=== PATIENT | female | born 1985 | race Two or more races ===

== ENCOUNTER 2020-05-19 11:00 | Day surgery (SDC) | payer OTHER | END 2020-05-19 21:30 | disposition home or self-care (01) | LOC: CIR.AMB 11:00 | PROVIDERS: ATTEND Obstetrics & Gynecology | DX: O02.1 Missed abortion (principal); Z20.822 Contact with and (suspected) exposure to COVID-19 ==

== ENCOUNTER 2021-01-19 19:20 | Emergency (ER) | payer OTHER ==
[~2021-01-19] VITALS: Ht 154.9 cm; Wt 61.2 kg
== END 2021-01-19 23:02 | disposition home or self-care (01) ==
LOC: ER 19:20
DX: O26.851 Spotting complicating pregnancy, first trimester (principal); O34.11 Maternal care for benign tumor of corpus uteri, first trimester; D25.9 Leiomyoma of uterus, unspecified; Z3A.01 Less than 8 weeks gestation of pregnancy

== ENCOUNTER → 2021-01-26 10:28 | Outpatient (CLI) | payer OTHER | END | disposition home or self-care (01) | LOC: LAB 10:28 | PROVIDERS: ATTEND Obstetrics & Gynecology | DX: O09.71 Supervision of high risk pregnancy due to social problems, first trimester (principal) ==

== ENCOUNTER 2021-03-14 15:46 | Outpatient (CLI) | payer OTHER | END 2021-03-14 15:59 | disposition home or self-care (01) | LOC: LAB 15:46 | PROVIDERS: ATTEND Obstetrics & Gynecology | DX: O09.72 Supervision of high risk pregnancy due to social problems, second trimester (principal) ==

== ENCOUNTER 2021-04-01 22:32 | Emergency (ER) | payer OTHER ==
[~2021-04-01] VITALS: Ht 154.9 cm; Wt 66.7 kg
[2021-04-01] MEDS ORDERED: PRENA1 TRUE CO1 EACH (22:51)
[2021-04-02] MEDS ORDERED: ACETAMINOPHEN650 M2 PO (03:36)
== END 2021-04-02 03:49 | disposition home or self-care (01) ==
LOC: ER 22:32
DX: R10.84 Generalized abdominal pain (principal); O26.92 Pregnancy related conditions, unspecified, second trimester; Z3A.17 17 weeks gestation of pregnancy

== ENCOUNTER 2021-05-11 15:25 | Outpatient (CLI) | payer OTHER ==
[~2021-05-11 15:25] MED LIST: ACETAMINOPHEN650 M2 PO; PRENA1 TRUE CO1 EACH
== END 2021-05-11 15:33 | disposition home or self-care (01) ==
LOC: LAB 15:25
PROVIDERS: ATTEND Obstetrics & Gynecology
DX: Z34.82 Encounter for supervision of other normal pregnancy, second trimester (principal)

== ENCOUNTER 2021-06-05 08:21 | Outpatient (CLI) | payer OTHER | END 2021-06-05 08:22 | disposition home or self-care (01) | LOC: LAB 08:21 | PROVIDERS: ATTEND Obstetrics & Gynecology | DX: Z34.81 Encounter for supervision of other normal pregnancy, first trimester (principal) ==

== ENCOUNTER 2021-06-29 15:33 | Outpatient (CLI) | payer OTHER | END 2021-06-29 16:55 | disposition home or self-care (01) | LOC: NST 15:33 | PROVIDERS: ATTEND Obstetrics & Gynecology Maternal & Fetal Medicine | DX: Z34.83 Encounter for supervision of other normal pregnancy, third trimester (principal) ==

== ENCOUNTER 2021-07-17 16:56 | Outpatient (CLI) | payer OTHER | END 2021-07-17 17:06 | disposition home or self-care (01) | LOC: LAB 16:56 | PROVIDERS: ATTEND Obstetrics & Gynecology Maternal & Fetal Medicine | DX: D50.9 Iron deficiency anemia, unspecified (principal); O09.73 Supervision of high risk pregnancy due to social problems, third trimester ==

== ENCOUNTER → 2021-08-15 09:01 | Outpatient (CLI) | payer OTHER ==
[~2021-08-15 09:01] MED LIST changes: +KETO10TA2 PO; +OXYC1TAB9 PO; +PROGESTERONE100 M1
== END | disposition home or self-care (01) ==
LOC: LAB 09:01
PROVIDERS: ATTEND Obstetrics & Gynecology
DX: Z34.83 Encounter for supervision of other normal pregnancy, third trimester (principal)

== ENCOUNTER 2021-08-15 09:32 | Inpatient (IN) | payer OTHER ==
[~2021-08-15] VITALS: Ht 157.5 cm; Wt 2.7 kg
[~2021-08-15 09:32] MED LIST changes: -KETO10TA2 PO; -OXYC1TAB9 PO; -PROGESTERONE100 M1
[2021-08-16] MEDS ORDERED: PROGESTERONE100 M1 (13:47)
[2021-08-19] MEDS ORDERED: KETO10TA2 PO (09:10)
[2021-08-19] MEDS ORDERED: OXYC1TAB9 PO (09:10)
== END 2021-08-19 15:57 | disposition home or self-care (01) | DRG 786 ==
LOC: NST 09:32 → LDR 11:05 → SURG-SUITE 11:05 → LDR 11:06 → O/R 08-16 08:50 → OB/GYN 08-16 11:13 → SURG-SUITE 08-16 13:37
PROVIDERS: ADMIT Obstetrics & Gynecology; ATTEND Obstetrics & Gynecology
PROC: 4A1HXCZ Monitoring of Products of Conception, Cardiac Rate, External Approach (ICD-10-PCS; 2021-08-15)
PROC: 0UB90ZZ Excision of Uterus, Open Approach (ICD-10-PCS; 2021-08-16)
PROC: 10D00Z1 Extraction of Products of Conception, Low, Open Approach (ICD-10-PCS; principal; 2021-08-16 08:30)
DX: O34.211 Maternal care for low transverse scar from previous cesarean delivery (principal); O60.14X0 Preterm labor third trimester with preterm delivery third trimester, not applicable or unspecified; O34.13 Maternal care for benign tumor of corpus uteri, third trimester; D25.2 Subserosal leiomyoma of uterus; Z3A.35 35 weeks gestation of pregnancy; Z37.0 Single live birth; Z20.822 Contact with and (suspected) exposure to COVID-19

== ENCOUNTER 2021-12-13 00:14 | Emergency (ER) | payer OTHER ==
[~2021-12-13] VITALS: Ht 154.9 cm; Wt 65.8 kg
[~2021-12-13 00:14] MED LIST changes: +KETO10TA2 PO; +OXYC1TAB9 PO; +PROGESTERONE100 M1
[2021-12-13] MEDS ORDERED: KETO10TA2 PO (06:08)
== END 2021-12-13 06:14 ==
LOC: ER 00:14
DX: R10.2 Pelvic and perineal pain (principal); D25.9 Leiomyoma of uterus, unspecified

== ENCOUNTER 2023-06-19 10:02 | Inpatient (IN) | payer OTHER ==
[~2023-06-19] VITALS: Ht 154.9 cm; Wt 80.3 kg
[2023-06-19] MEDS ORDERED: CEFAZOLIN SODIUM 1,000 MG VIAL IV SCH (10:15)
[2023-06-19] MEDS ORDERED: CITRIC ACID/SODIUM CITRATE 30 ML BLIST.PACK PO SCH (10:15)
[2023-06-19] MEDS ORDERED: RINGERS SOLUTION,LACTATED 1,000 ML IV SCH ×2 (10:15→15:45)
[2023-06-19] MEDS ORDERED: PRENATAL TABLE1 EAC4 PO (10:24)
[2023-06-19 10:43] LABS: HEMATOCRIT 31.7 % (36.0-45.00); PLATELET COUNT 209 K/uL (150-450); RED BLOOD COUNT 3.96 M/uL (4.00-6.00); RED CELL DISTRIBUTION WIDTH 15.8 % (11.5-14.5)
[2023-06-19 10:48] LABS: HEMOGLOBIN 10.5 g/dL (12.0-15.00); MEAN CORPUSCULAR HEMOGLOBIN 26.5 pg (27.00-32.0)
[2023-06-19 11:27] LABS: ALBUMIN 2.5 gm/dL (3.4-5.0); BILIRUBIN TOTAL 0.51 mg/dL (0.3-1.2); CALCIUM 8.6 mg/dL (8.5-10.1); CREATININE SERUM 0.42 mg/dL (0.55-1.02); GFR 171.69; GLOBULINA 3.3 G/DL (2.4-3.5); POTASSIUM 4.38 mEq/L (3.5-5.1); TOTAL PROTEIN 5.8 gm/dL (6.4-8.2)
[2023-06-19 11:41] LABS: INR 0.94; PARTIAL THROMBOPLASTIN TIME 28.5 SECONDS (22.0-34.0); PROTHROMBIN TIME 9.9 SECONDS (9.0-11.5)
[2023-06-19] MEDS ORDERED: ERYTHROMYCIN BASE 3.5 GM OINT...G. OP ONE (14:12)
[2023-06-19] MEDS ORDERED: OXYTOCIN 10 UNITS/ML VIAL ONE (14:12)
[2023-06-19] MEDS ORDERED: MORPHINE SULFATE 4 MG/ML CARTRIDGE IV PRN (15:45)
[2023-06-19] MEDS ORDERED: OXYTOCIN 1,000 ML IV ONE (16:00)
[2023-06-19] MEDS ORDERED: ERYTHROMYCIN BASE 1 GM TUBE OP ONE (16:30)
[2023-06-19] MEDS ORDERED: OXYTOCIN 10 UNIT/ML (10ML) IV ONE (16:30)
[2023-06-19] MEDS ORDERED: GABAPENTIN 300 MG CAPSULE PO SCH (17:00)
[2023-06-19] MEDS ORDERED: SIMETHICONE 125 MG CAPSULE PO SCH (17:00)
[2023-06-19] MEDS ORDERED: KETOROLAC TROMETHAMINE 30 MG VIAL ONE (17:58)
[2023-06-19] MEDS ORDERED: KETOROLAC TROMETHAMINE 30 MG VIAL IV SCH (18:00)
[2023-06-20] MEDS ORDERED: ACETAMINOPHEN 500 MG GEL..CAP PO SCH (06:00)
[2023-06-20 07:11] LABS: HEMATOCRIT 27.2 % (36.0-45.00); HEMOGLOBIN 9.2 g/dL (12.0-15.00); MEAN CORPUSCULAR HEMOGLOBIN 27.4 pg (27.00-32.0); MEAN CORPUSCULAR HGB CONC 33.8 g/dl (32.0-36.0); PLATELET COUNT 169 K/uL (150-450); RED BLOOD COUNT 3.36 M/uL (4.00-6.00); RED CELL DISTRIBUTION WIDTH 15.4 % (11.5-14.5)
[2023-06-20] MEDS ORDERED: OxyCODONE HCL 5 MG TABLET (ROXICODONE) PO PRN (08:00)
[2023-06-20] MEDS ORDERED: KETOROLAC TROMETHAMINE 10 MG TABLET PO SCH (08:00)
[2023-06-20] MEDS ORDERED: IRON FUM,PS/FOLIC/BCOMP,C NO.9 1 CAP CAPSULE PO SCH (09:00)
[2023-06-20] MEDS ORDERED: SENNOSIDES 1 TAB TABLET PO SCH (09:00)
== END 2023-06-21 14:56 | disposition home or self-care (01) | DRG 788 ==
LOC: LDR 10:02 → OB/GYN 15:53
PROVIDERS: Obstetrics & Gynecology; ADMIT Obstetrics & Gynecology Gynecology; ATTEND Obstetrics & Gynecology Gynecology
PROC: 4A1HXCZ Monitoring of Products of Conception, Cardiac Rate, External Approach (ICD-10-PCS; 2023-06-19)
PROC: 10D00Z1 Extraction of Products of Conception, Low, Open Approach (ICD-10-PCS; principal; 2023-06-19 14:15)
DX: O34.211 Maternal care for low transverse scar from previous cesarean delivery (principal); Z3A.37 37 weeks gestation of pregnancy; Z37.0 Single live birth; Z20.822 Contact with and (suspected) exposure to COVID-19